=== PATIENT | female | born 1985 | race Caucasian/White ===

== ENCOUNTER → 2016-08-19 | Outpatient (CLI) | payer BC ==
[~2016-08-19] MED LIST: FLONASE 0.05% 121 EA NAS; NKHM; PERCOCET 325 MG1 TA2 PO; Vicodin 5/500 505 MG PO; ZITHROMAX250 MG PO; ZYRTEC10 MG PO
== END | disposition home or self-care (01) ==
LOC: US 09:45
DX: K80.20 Calculus of gallbladder without cholecystitis without obstruction (principal); K76.0 Fatty (change of) liver, not elsewhere classified; R10.2 Pelvic and perineal pain; R10.84 Generalized abdominal pain; R11.0 Nausea

== ENCOUNTER → 2016-08-25 | Outpatient (CLI) | payer BC | END | disposition home or self-care (01) | LOC: US 16:46 | DX: R10.2 Pelvic and perineal pain (principal); R93.8 Abnormal findings on diagnostic imaging of other specified body structures ==

== ENCOUNTER → 2016-09-04 | Day surgery (SDC) | payer BC ==
[2016-09-01 12:06] LABS: BASO % 0.2 % (0.0-1.0); EOS # 0.2 10*3/uL (0.0-0.4); EOS % 2.2 % (1.0-4.0); HEMATOCRIT 41.7 % (37.0-47.0); HEMOGLOBIN 13.7 g/dl (12.0-16.0); LYMPH # 1.9 10*3/uL (1.3-4.4); LYMPH % 23.1 % (27.0-41.0); MEAN CORPUSCULAR HGB 32.9 pg (27.0-31.0); MEAN CORPUSCULAR HGB CONC 32.9 g/dl (33.0-37.0); MEAN PLATELET VOLUME 9.9 fl (9.6-12.3); MONO # 0.7 10*3/uL (0.1-1.0); MONO % 8.1 % (3.0-9.0); NEUT # 5.5 10*3/uL (2.3-7.9); NEUT % 66.2 % (47.0-73.0); PLATELET COUNT AUTOMATED 341 10*3/uL (130-400); RED BLOOD COUNT 4.17 10*6/uL (4.10-5.10); RED CELL DISTRI WIDTH 12.2 % (0-14.5); WHITE BLOOD COUNT 8.3 10*3/uL (4.8-10.8)
[2016-09-01 12:20] LABS: BILIRUBIN NEGATIVE (NEGATIVE); BLOOD 1+ (NEGATIVE); CLARITY CLOUDY (CLEAR); COLOR YELLOW (YELLOW); GLUCOSE NEGATIVE (NEGATIVE); KETONE NEGATIVE (NEGATIVE); LEUKO ESTERASE 1+ (NEGATIVE); NITRITE NEGATIVE (NEGATIVE); PROTEIN NEGATIVE (NEGATIVE); UROBILINOGEN 0.2 E.U./dl (0.2-1.0)
[2016-09-01 12:38] LABS: PROTHROMBIN TIME 10.9 SECONDS (9.0-12.4)
[2016-09-01 12:41] LABS: ALBUMIN 3.7 gm/dl (3.1-4.5); ALKALINE PHOSPHATASE 89 U/L (45-117); BILIRUBIN, DIRECT < 0.1 mg/dL (0.0-0.2); BILIRUBIN, TOTAL 0.3 mg/dl (0.2-1.0); BUN 8 mg/dl (7-24); CARBON DIOXIDE 29 mmol/L (21-32); CHLORIDE 104 mmol/L (98-107); EST GLOM FILT AFRICAN AMERICAN > 60 ml/min; GLUCOSE 83 mg/dL (65-99); POTASSIUM 4.1 mmol/L (3.5-5.1); SGOT/AST 13 IU/L (3-35); SGPT/ALT 16 U/L (12-78); SODIUM 138 mmol/L (136-145); TOTAL PROTEIN 7.4 gm/dL (6.4-8.2)
[2016-09-01 13:00] LABS: BACTERIA TRACE; EPITHELIAL CELLS 21-30
[2016-09-04] VITALS (7 sets, daily range): BP systolic 118–124; BP diastolic 59–75
[~2016-09-04] VITALS: Ht 162.5 cm; Wt 84.8 kg
[~2016-09-04] MED LIST changes: +NORCO 5-325 TA1 EACH PO; +PRILOSEC10 MG/Pack PO; +VITAMIN D50000 UNIT PO
--- NOTE | ~2016-09-04 | O ---
[place], [place] OPERATIVE NOTE NAME: EVAN LEIGH [facility] #: [id number] UNIT #: [id number] ROOM: DOCTOR: CHINO FARRELL MD BIRTHDATE: [birth year] DOS: 09/04/2016 PREOPERATIVE DIAGNOSIS: Symptomatic gallstones. POSTOPERATIVE DIAGNOSIS: Chronic calculous cholecystitis. PROCEDURE: Laparoscopic cholecystectomy. SURGEON: Chino Farrell M.D. DIGITAL ASSET MANAGER: MAYKEL. ANESTHESIA: General anesthesia with endotracheal intubation. INDICATIONS: This is a 31-year-old lady with a history of right upper quadrant pain, was found to have gallstones and is here for the above-mentioned procedure. The procedure and its complications were explained to the patient in detail preoperatively. Complications that were discussed included, but were not limited to bleeding, infection, hematoma/seroma/abscess formation, biloma formation, prolonged postoperative pain, incisional hernia formation, and inadvertent injury to the common bile duct. She agreed to proceed. DESCRIPTION OF PROCEDURE: After identifying the patient, the patient was brought to the operating suite and laid in the supine position. After induction of general anesthesia, a timeout procedure was called and the parts were then painted and draped in the usual sterile fashion. An incision in a transverse fashion was made just below the umbilicus. The skin and the subcutaneous tissue were incised in the line of the incision. The fascia was incised vertically and 2 stay sutures were taken on either side with 0 Vicryl. The peritoneum was opened and a 12 mm Vinny port was introduced. Pneumoperitoneum was created. Under direct vision, an epigastric incision of 10 mm and two 5 mm incisions were made in the right upper quadrant and appropriate size ports were introduced. The gallbladder was retracted superiorly and laterally. The cystic duct and the cystic artery were meticulously dissected until the critical view of safety was obtained and the triangle of Calot was identified. Thereafter, the cystic duct and the cystic artery were each clipped 3 times and cut between the first and the second clip. The gallbladder was then removed from the bed of the gallbladder with the help of electrocautery. It was placed in an EndoCatch bag and removed from the peritoneal cavity and sent for histopathological diagnosis. Hemostasis was confirmed in the liver bed. Thereafter, the right upper quadrant and the epigastric ports were removed and there was no bleeding seen. The umbilical port was also removed and the 2 stay sutures were tied together and an additional 0 Vicryl stitch was taken to approximate the fascia. Thereafter, the edges of the skin were infiltrated with 1% plain lidocaine and they were then approximated with the help of 4-0 Vicryl in a subcuticular running fashion. Note should be made that prior to removing the ports, the patient's pelvic structures were carefully examined as well. The patient had been doing some left lower quadrant pain for which she had gone to a learning design specialist for an opinion. There was no obvious abnormality that could be seen in the pelvic area. The patient was brought to the recovery room in a [place], [place] OPERATIVE NOTE NAME: EVAN LEIGH UNIT #: [id number] ROOM: DOCTOR: CHINO FARRELL MD BIRTHDATE: [birth year] stable fashion. There were no complications. Dr. Chino Farrell, the attending surgeon, was present throughout the operating case. Chino Farrell MD CM:OPRECORD:OPERATIVE NOTE [id number] CHINO FARRELL MD 09/04/16909 interface
== END | disposition home or self-care (01) ==
LOC: SDC 09-01 11:00 → LAB 01:53 → SDC 07:30 → LAB 08:00
PROVIDERS: Surgery
DX: K80.10 Calculus of gallbladder with chronic cholecystitis without obstruction (principal); Z80.8 Family history of malignant neoplasm of other organs or systems; K21.9 Gastro-esophageal reflux disease without esophagitis; Z98.51 Tubal ligation status

== ENCOUNTER → 2017-06-21 | Outpatient (CLI) | payer BC | END | disposition home or self-care (01) | LOC: RAD 10:41 | DX: M54.5 Low back pain (principal) ==

== ENCOUNTER → 2017-06-25 | Outpatient (CLI) | payer BC | END | disposition home or self-care (01) | LOC: MRI 09:30 | DX: M51.26 Other intervertebral disc displacement, lumbar region (principal); M48.062 Spinal stenosis, lumbar region with neurogenic claudication ==

== ENCOUNTER → 2017-12-26 | Outpatient (CLI) | payer BC, OTHER | END | disposition home or self-care (01) | LOC: RAD 15:49 | DX: R20.0 Anesthesia of skin (principal) ==